=== PATIENT | female | born 1960 | race American Indian/Alaskan Native ===

== ENCOUNTER 2019-09-02 09:14 | Outpatient (CLI) | payer BC ==
--- NOTE | 2019-09-02 12:04 | Mammography Report ---
DIGITAL SCREENING MAMMOGRAM WITH CAD, 09/02/2019 INDICATION: Routine screening mammography. TECHNIQUE: Digital bilateral 2D mammography was obtained in the craniocaudal and mediolateral obliq ue projections. This examination was interpreted with the benefit of Computer-Aided Detection analysi s. COMPARISON: None available. FINDINGS: Breast Density: The breasts are heterogeneously dense, which may obscure small masses. An irregular right outer focal asymmetry requires additional imaging. No architectural distortion or suspicious calcifications of the right breast. There is no evidence of dominant mass, suspicious calc ifications or architectural distortion in the left breast. IMPRESSION: Right focal asymmetry requiring additional imaging. Recommend recall for right ML, exagge rated CC and spot compression MLO and CC views and right breast ultrasound if needed. Follow up recommendation: Special View: Spot Category 0: Incomplete. Needs additional imaging evaluation and/or prior mammograms for comparison. A "normal" or negative report should not discourage follow up or biopsy of a clinically significant f inding. A written summary of these findings will be mailed to the patient. The patient will be entered into a mammography reporting system which will generate a reminder letter for the patient's next appointmen t at the appropriate interval. [employer] recommends yearly mammograms starting at age 40 and continuing as l nahum as a woman is in good health. Breast MRI is recommended for women with an approximate 20-25% or greater lifetime risk of breast cancer, including women with a strong family history of breast or ova tahir cancer or who have been treated for Hodgkin's disease. Signer Name: Enrique Cobos MD Signed: 09/02/2019 11:59 AM Workstation Name: [id number]
== END 2019-09-02 09:15 | disposition home or self-care (01) ==
LOC: SPVWC 09:14
PROVIDERS: ATTEND Family Medicine Adult Medicine
DX: Z12.31 Encounter for screening mammogram for malignant neoplasm of breast (principal)
CPT/HCPCS: 77067